=== PATIENT | male | born 1955 | race African-American/Black ===

== ENCOUNTER 2020-02-25 18:06 | Emergency (ER) | payer BC, OTHER ==
[~2020-02-25] VITALS: Ht 190.5 cm; Wt 95.0 kg
[2020-02-25] MEDS ORDERED: ASPIRIN 81MG TABLET PO ONE (19:00)
[2020-02-25] MEDS ORDERED: NITROGLYCERIN OINT 1GM/INCH UDPKT TD ONE (19:00)
[2020-02-25] MEDS ORDERED: FUROSEMIDE 40MG/4ML VIAL IV ONE (19:00)
[2020-02-25 19:19] LABS: BASOPHILS % 0.3 % (0.0-2.0); EOSINOPHILS % 0.6 % (0.0-5.0); HEMATOCRIT. 44.9 % (42.0-52.0); HEMOGLOBIN. 15.3 g/dL (14.0-18.0); LYMPHOCYTES % 12.4 % (20.0-50.0); MEAN CORPUSCULAR HEMOGLOBIN 29.5 pg (28.0-32.0); MEAN CORPUSCULAR VOLUME 86.4 fL (80.0-94.0); MEAN PLATELET VOLUME 8.7 fl (7.4-10.4); MONOCYTES % 8.1 % (2.0-8.0); NEUTROPHILS % 78.6 % (40.0-76.0); PLATELET 217 x1000/uL (130-400); RED CELL DISTRIBUTION WIDTH 14.4 % (11.6-14.6)
[2020-02-25 19:30] LABS: CHLORIDE 105 mEq/L (98-107)
[2020-02-25 19:31] LABS: D-DIMER 0.72 mg/L FEU (<0.50); PARTIAL THROMBOPLASTIN TIME 26.4 sec (23.4-31.0); PROTHROMBIN TIME 10.4 sec (9.6-11.0)
[2020-02-25] MEDS ORDERED: SODIUM BICARBONATE 8.4% 1 MEQ/ML 50ML SYR IV ONE (21:30)
[2020-02-25] MEDS ORDERED: CEFTRIAXONE 1 G PREMIX 50 ML IV ONE (23:30)
[2020-02-25] MEDS ORDERED: AZITHROMYCIN 500 MG in DEXT 5% WATER 250 ML IV ONE (23:30)
[2020-02-25] MEDS ORDERED: IOHEXOL-350 100 ML BOTTLE ONE (23:31)
[2020-02-26 00:42] LABS: CLARITY URINE CLEAR (CLEAR); COLOR URINE YELLOW (YELLOW); KETONES URINE NEGATIVE (NEGATIVE); LEUKOCYTE ESTERASE URINE TRACE (NEGATIVE); NITRITE URINE NEGATIVE (NEGATIVE); OCCULT BLOOD URINE NEGATIVE (NEGATIVE); PH URINE 7.5 (4.5-8.0); PROTEIN URINE NEGATIVE (NEGATIVE); SPECIFIC GRAVITY URINE 1.011 (1.005-1.030)
[2020-02-26 01:23] VITALS: BP 101/54
== END 2020-02-26 02:01 | disposition short-term general hospital (02) ==
LOC: ER 18:06 → CANBEDREQ 02-26 02:31
DX: R06.02 Shortness of breath (principal); I71.2 Thoracic aortic aneurysm, without rupture; Z20.828 Contact with and (suspected) exposure to other viral communicable diseases; E78.00 Pure hypercholesterolemia, unspecified; I10 Essential (primary) hypertension
CPT/HCPCS: 36415; 71045; 71275; 80053; 81003; 83605; 83880; 84484; 85025; 85379; 85610; 85730; 87040; 87086; 87635; 93005; 96365; 96367; 96375; 99285; J0456; J0696; J1940; J3490; J7060; Q9967